=== PATIENT | female | born 1965 | race Caucasian/White ===

== ENCOUNTER → 2023-08-01 06:28 | Day surgery (SDC) | payer OTHER, SELFPAY | LOC: GI 06:28 | PROVIDERS: ATTENDING PHYSICIAN Internal Medicine Gastroenterology | DX: Z12.11 Encounter for screening for malignant neoplasm of colon (principal); K64.4 Residual hemorrhoidal skin tags; K64.8 Other hemorrhoids; Q43.8 Other specified congenital malformations of intestine; K56.2 Volvulus; Z83.719 Family history of colon polyps, unspecified | CPT/HCPCS: G0105 ==

== ENCOUNTER 2023-08-27 11:58 | Emergency (ER) | payer OTHER, SELFPAY ==
[2023-08-27 12:00] VITALS: BP 94/62
--- NOTE | 2023-08-27 12:43 | ED.GENMED ---
History of Present Illness
General
Chief Complaint: Musculo-Skeletal Complaint
Source: patient
Exam Limitations: none
Time Seen by Provider: 08/27/23 12:10
Nursing documentation reviewed up to this point in time: agreed with
Travel History
Have you had any contact with someone who has COVID-19?: No
Do you have any symptoms of coronavirus? Fever > 100 degrees, chills, cough, shortness of breath, sore throat, loss of taste or smell, muscle aches, or headache?: No
History of Present Illness
History of Present Illness:
58-year-old female presents to the ER for evaluation of right shoulder pain. Patient had shoulder surgery on this right shoulder [address] North for impingement syndrome. Today this morning she slipped and fell and reports her right arm
went back behind her. Since then she reports her shoulder feels different.
She did feel lightheaded after but believes it was due to due to pain.
Past History
Past History
ED Past Medical History: GERD
ED Past Surgical History: Gynecological
Social History
Tobacco: Non-smoker
Alcohol: None
Drug: None
Personal:
Living: with family
Employment: Employed
Family History
Family History: Other (Noncontributory)
Review of Systems
Review of Systems
Allergies reviewed?: Yes
All Other Systems: ROS reviewed and negative except as documented in HPI and ROS
Constitutional: Reports no symptoms
Musculoskeletal: Reports other (right shoulder pain/discomfort )
Skin: Reports no symptoms
Neurological: Reports no symptoms
Psychiatric: Reports no symptoms
Phy Exam
General Physical Exam
General Presentation: no apparent distress
General age: appears stated age
General Skin: warm and dry
General Habitus: normal
General Mental: alert
General Hydration: appears well hydrated
Neurological Exam
Neurological Exam: alert and oriented x3
Musculoskeletal Exam
Musculoskeletal Exam: other (no obvious swelling to right shoulder there is dressing in place no surrounding erythema mildly tender on palpation anterior deltoid strong distal pulses normal normal distal sensation normal cap refill)
Skin Exam
Skin Exam: normal color and warm/dry
Psychiatric Exam
Psychiatric Exam: normal mood/affect
Course
Orders/Labs/Results
Orders:
Orders
08/27/23 12:45
Shoulder, Right, Trauma [CR Shoulder, Trauma - Right] Urgent
Comment:
Reason For Exam: trauma
08/27/23 13:29
Sling Right-Treatment ONCE
Vital Signs
Initial and Last Documented VS:
Initial Vital Signs
Temp Pulse Resp BP Pulse Ox
97.6 F 61 16 94/62 98
08/27/23 12:00 08/27/23 12:00 08/27/23 12:00 08/27/23 12:00 08/27/23 12:00
Last Documented Vital Signs
Temp Pulse Resp BP Pulse Ox
97.6 F 61 16 94/62 98
08/27/23 12:00 08/27/23 12:00 08/27/23 12:00 08/27/23 12:00 08/27/23 12:00
MDM/Problems Addressed
Differential Diagnosis Includes:
Not limited to fracture shoulder sprain strain
MDM/Problems Addressed:
Patient is status post right shoulder surgery by Dr. North several days ago. Patient had surgery on distal clavicle for impingement. Today she fell and her arm was stretched back. She had discomfort here in the ER but had good range of motion
no obvious swelling strong distal pulses. Patient felt a little lightheaded likely from the pain however she presents awake alert no acute distress no acute findings on x-ray. Patient feeling much better. I spoke with Dr. North who viewed
x-rays nothing further to do no obvious injuries. Will DC as discussed however in a sling for the next several days with gentle range of motion. Patient has medication at home as needed for pain and has follow-up appoint with him next week.
*Radiology
Radiology exam reviewed: preliminary read by ED provider
*Critical Care Note
Total Time (30-74mins, 75-104mins- exclusive of procedures): Not Applicable
ED Attending Note
-
Portions of this chart may have been created with voice recognition software.� Occasional wrong word or��sound alike� substitutions may have occurred due to the inherent limitations of voice recognition software.
Discharge Plan
Departure
Patient Disposition: Home (Routine Discharge)
Date of Disposition: 08/27/23
Time of Disposition: 13:37
Patient with high blood pressure during this ER visit?: No
Covid-19: Not Applicable
Discharge Problem:
shoulder strain
Instructions: Shoulder Pain (DC), Using Cold for Pain
Prescriptions:
No Action
prednisone 10 MG tablet
10 mg PO DAILY
oxycodone-acetaminophen 5 MG/325 MG tablet
1 tab PO Q4HPRN PRN (Reason: pain) Qty: 14 0RF
[id number] [Fioricet] 1 EACH capsule
1 ea PO Q8 PRN (Reason: pain) Qty: 10 0RF
albuterol sulfate 90 mcg/actuation HFA aerosol inhaler
2 puff inhalation Q6H PRN (Reason: shortness of breath or wheezing) Qty: 6.7 0RF
ondansetron 4 mg tablet,disintegrating
4 mg PO TIDPRN PRN (Reason: nausea/vomiting) Qty: 7 0RF
Referrals:
Stevie North MD [Active] -
Dorothy Kenny PA-C [Family Provider] -
Activity Restrictions/Additional Instructions:
As discussed wear sling for support remove several times a day and do gentle range of motion exercises. You may ice it for the next 24 hours 20 minutes at a time several times a day. You may take ibuprofen any pain medications previously
prescribed. Follow-up with Dr. North as scheduled next week. Return if any worsening of symptoms
Interventions
Interventions:
*Risk Screen - Suicide Last Done: 08/27/23 12:02
*General Assessment Last Done: 08/27/23 12:02
*Neglect/Abuse Screening Last Done: 08/27/23 12:02
ED- Fall Risk Assessment Last Done: 08/27/23 13:00
*ED COVID-19 Vaccine History Last Done: 08/27/23 13:00
ED-Musculoskeletal Assessment Last Done: 08/27/23 13:00
[2023-08-27] MEDS: MOTRIN 400 MG PO (13:47)
== END 2023-08-27 13:49 | disposition home or self-care (01) ==
LOC: EMR 11:58
PROVIDERS: EMERGENCY PHYSICIAN Emergency Medicine; FAMILY PHYSICIAN Student in an Organized Health Care Education/Training Program
DX: S46.911A Strain of unspecified muscle, fascia and tendon at shoulder and upper arm level, right arm, initial encounter (principal); W01.0XXA Fall on same level from slipping, tripping and stumbling without subsequent striking against object, initial encounter; K21.9 Gastro-esophageal reflux disease without esophagitis
CPT/HCPCS: 99283; 73030

== ENCOUNTER → 2024-02-08 18:30 | Outpatient (REF) | payer OTHER, BC, SELFPAY | LOC: WDC 18:30 | PROVIDERS: ATTENDING PHYSICIAN Student in an Organized Health Care Education/Training Program | DX: Z12.31 Encounter for screening mammogram for malignant neoplasm of breast (principal) | CPT/HCPCS: 77063; 77067 ==

== ENCOUNTER → 2024-05-17 14:07 | Outpatient (REF) | payer BC, SELFPAY | LOC: WDC 14:07 | PROVIDERS: ATTENDING PHYSICIAN Student in an Organized Health Care Education/Training Program | DX: R92.2 Inconclusive mammogram (principal) | CPT/HCPCS: 76641 ==

== ENCOUNTER → 2025-02-11 17:28 | Outpatient (REF) | payer BC, SELFPAY | LOC: WDC 17:28 | PROVIDERS: ATTENDING PHYSICIAN Student in an Organized Health Care Education/Training Program | DX: Z12.31 Encounter for screening mammogram for malignant neoplasm of breast (principal) | CPT/HCPCS: 77063; 77067 ==

== ENCOUNTER → 2025-04-02 09:28 | Outpatient (REF) | payer BC, SELFPAY | LOC: RAD 09:28 | PROVIDERS: ATTENDING PHYSICIAN Student in an Organized Health Care Education/Training Program; FAMILY PHYSICIAN Family Medicine; REFERRING PHYSICIAN Obstetrics & Gynecology | DX: Z13.820 Encounter for screening for osteoporosis (principal); Z78.0 Asymptomatic menopausal state | CPT/HCPCS: 77080 ==

== ENCOUNTER → 2025-04-30 07:02 | Outpatient (REF) | payer BC, SELFPAY | LOC: HWRAD 07:02 | PROVIDERS: ATTENDING PHYSICIAN Physician Assistant Medical | DX: R68.81 Early satiety (principal); R11.0 Nausea; R74.8 Abnormal levels of other serum enzymes | CPT/HCPCS: 76700 ==